=== PATIENT | male | born 1980 | race Caucasian/White ===

== ENCOUNTER 2018-06-28 23:46 | Emergency (ER) | payer BC, MEDICAID ==
[~2018-06-28] VITALS: Ht 185.4 cm; Wt 72.1 kg
[2018-06-28 23:58] VITALS: BP 139/93
[2018-06-29] MEDS ORDERED: LIDOCAINE-MPF 1%, 2ML ONE ×3 (01:17→01:56)
[2018-06-29] MEDS ORDERED: HYDROcodone/APAP 5/325 TABLET ONE (02:01)
[2018-06-29] MEDS ORDERED: BACITRACIN ZINC OINT 500U/GM, 0.9 GM ONE (02:16)
[2018-06-29] MEDS ORDERED: HYDROcodone/APAP 5/325 TABLET PO ONE (02:30)
== END 2018-06-29 03:19 | disposition home or self-care (01) ==
LOC: ED 23:59
DX: S61.011A Laceration without foreign body of right thumb without damage to nail, initial encounter (principal); X99.1XXA Assault by knife, initial encounter; Y93.89 Activity, other specified; Y99.8 Other external cause status; Y92.009 Unspecified place in unspecified non-institutional (private) residence as the place of occurrence of the external cause
CPT/HCPCS: 12041; 99284